=== PATIENT | male | born 1975 | race Caucasian/White ===

== ENCOUNTER 2023-12-20 09:33 | Emergency (ER) | payer OTHER, SELFPAY ==
--- NOTE | 2023-12-20 09:50 | ED.WOUNDLAC ---
HPI - Wound/Laceration General Chief Complaint: Wound/Laceration Stated Complaint: WC right leg lac Time Seen by Provider: 12/20/23 09:50 Source: patient Mode of arrival: ambulatory Limitations: no limitations History of Present Illness HPI narrative: 48-year-old male presented for complaint of laceration to the right laboy sustained just prior to arrival at work today. He states he struck his leg on a bent piece metal. He was able to get the bleeding controlled while at work, applied Neosporin and wrapped the site. Says his tetanus was within the last 6 years. Related Data Home Medications Medication Instructions Recorded Confirmed amlodipine 10 mg tablet 10 mg PO DAILY 12/20/23 12/20/23 losartan 100 mg tablet 100 mg PO DAILY 12/20/23 12/20/23 sertraline 50 mg tablet 50 mg PO DAILY 12/20/23 12/20/23 Allergies Allergy/AdvReac Type Severity Reaction Status Date / Time Penicillins Allergy Unknown Rash Verified 07/15/17 09:53 Review of Systems Review of Systems: CONSTITUTIONAL: Denies body aches, fever, chills, or sweats. CARDIOVASCULAR: Denies chest pain, palpitations, or edema. RESPIRATORY: Denies cough or dyspnea. SKIN: reports right leg lac MUSCULOSKELETAL: Denies back pain, joint pain, or myalgia. NEUROLOGIC: Denies headache, numbness, tingling, or weakness. PMFSH Comments At time of signature, I have reviewed and agree with nursing past medical, surgical, social and family history unless otherwise noted. Please see nursing chart for further information. There is no relevant family history pertinent to the presenting complaint Exam Narrative: GENERAL: Well-appearing ENT: Mucous membranes moist. Oropharynx without edema, erythema or lesions. NECK: Supple. CHEST: Clear to auscultation. HEART: Regular rate and rhythm. SKIN: Warm, dry. Right laboy with laceration 7-shaped [id number]. Bleeding controlled. Superficial abrasion lateral to lac. NEURO: Alert and oriented x3. Course Course Emergency Course: Patient is aware of diagnosis, understands and agrees to treatment plan. Anticipatory guidance given. Patient agrees to follow-up as directed and is aware of reasons to seek care at the emergency department. Portions of this record may have been created with voice recognition software Level of Care: Express Care Visit Vital Signs Vital signs: Reviewed Procedures Laceration right leg: Date: 12/20/23 Size (cm): 4 Description: flap, irregular and clean Depth: simple, single layer Local Anesthetic: lidocaine 1% Amount of anesthesia used (mL): 4 Pre-repair: wound explored and irrigated (100mL) ====== Skin Level ====== Skin layer closed with: nylon Size (cm): 5-0 Number of sutures: 6 Technique: simple, interrupted ====== Subcutaneous Layer ====== ====== Muscle Layer ====== ====== Tendon Layer ====== Dressing: The procedure and its alternatives were reviewed with patient. Risks were reviewed with patient including infection and damage to nearby structures. Patient provided verbal informed consent. The patient was positioned appropriately. Sterile drapes applied to maintain sterile field. Wound was explored for abnormalities including infection and foreign bodies. Sutures placed with wound edges approximated. Patient tolerated well, no complications. Dressing applied per RN. MDM - Wound/Laceration MDM Narrative Medical decision making narrative: Discussed physical exam findings, patient tolerated suture placement.. Advised supportive measures and signs/symptoms to go to the ER. Pt is appropriate for outpt treatment and f/u. Differential Diagnosis Differential diagnosis: Likely laceration, abscess, abrasion and avulsion of skin Discharge Plan Discharge Clinical Impression: Laceration Patient Disposition: Home, Self-Care Condition: Stable Instructions: Antibiotic Form,
[2023-12-20 09:52] VITALS: BP 141/84; PULSE 71; RESP 16; TEMP 36.8; O2SAT 99
== END 2023-12-20 10:30 | disposition home or self-care (01) ==
PROVIDERS: Emergency Provider Nurse Practitioner Family; PCP Family Medicine
DX: S81.811A Laceration without foreign body, right lower leg, initial encounter (principal); W22.8XXA Striking against or struck by other objects, initial encounter; Y99.0 Civilian activity done for income or pay; I10 Essential (primary) hypertension; F41.9 Anxiety disorder, unspecified
CPT/HCPCS: 12002; 99213; G0463